=== PATIENT | male | born 1990 | race American Indian/Alaskan Native ===

== ENCOUNTER 2019-12-07 12:51 | Emergency (ER) | payer SELFPAY ==
[2019-12-07 12:59] VITALS: BP 130/45
--- NOTE | 2019-12-07 13:21 | Emergency Department Report ---
ED Eye Problem HPI - General Chief complaint: Eye Problems Stated complaint: EYE PAIN Time Seen by Provider: 12/07/19 13:10 Source: patient Mode of arrival: Ambulatory Limitations: No Limitations - History of Present Illness Initial comments: Patient is a 29-year-old male who presents emergency room with complaints of right eye erythema and irritation that began 3 days ago. He states he has had associated crusting, eyelash matting, mucus drainage, watering. He denies getting anything into the eye. He denies any contact lens use. He denies any vision changes. He states that last month he had the same symptoms but it resolved with crlb-lnl-saaicrb eyedrops. He states he has been using moww-ugt-kkxwfjx eyedrops without much relief. He states he has a past medical history of a heart murmur. He denies any allergies to medications. - Related Data Previous Rx's Medication Instructions Recorded Last Taken Type Polymyxin B Sulf/Trimethoprim 1 drop OD Q3HR 7 Days #1 bottle 12/07/19 Unknown Rx [Polytrim Eye Drops [id number]/0.1%] Allergies Allergy/AdvReac Type Severity Reaction Status Date / Time No Known Allergies Allergy Verified 12/07/19 12:54 ED Review of Systems ROS: Stated complaint: EYE PAIN Other details as noted in HPI Comment: All other systems reviewed and negative ED Past Medical Hx - Past Medical History Previous Medical History?: No - Surgical History Past Surgical History?: No - Social History Smoking Status: Never Smoker Substance Use Type: Marijuana - Medications Home Medications: Home Medications Medication Instructions Recorded Confirmed Last Taken Type Polymyxin B Sulf/Trimethoprim 1 drop OD Q3HR 7 Days #1 bottle 12/07/19 Unknown Rx [Polytrim Eye Drops [id number]/0.1%] ED Physical Exam - General Limitations: No Limitations General appearance: alert, in no apparent distress - Head Head exam: Present: atraumatic, normocephalic - Eye Eye exam: Present: PERRL, EOMI, conjunctival injection (right), other (no eyelid swelling, no eyelid scaling, no pain with EOM, no edema of the periorbital region). Absent: periorbital swelling, periorbital tenderness - ENT ENT exam: Present: mucous membranes moist - Neurological Exam Neurological exam: Present: alert, oriented X3 - Psychiatric Psychiatric exam: Present: normal affect, normal mood - Skin Skin exam: Present: warm, dry ED Course Vital Signs 12/07/19 12:57 Temperature 98 F Pulse Rate 81 Respiratory 16 Rate Blood Pressure 130/45 [Left] O2 Sat by Pulse 100 Oximetry ED Medical Decision Making - Medical Decision Making Patient is a 29-year-old male who presents emergency room with complaints of right eye erythema and irritation that began 3 days ago. He states he has had associated crusting, eyelash matting, mucus drainage, watering. He denies getting anything into the eye. He denies any contact lens use. He denies any vision changes. He states that last month he had the same symptoms but it reso lved with mwju-ebo-zkcphxp eyedrops. He states he has been using mvvs-wcy-eosclqh eyedrops without much relief. He states he has a past medical history of a heart murmur. He denies any allergies to medications. Vitals are stable. On exam: Right-sided conjunctival injection, EOMI, PERRL, no periorbital edema or tenderness to palpation, no eyelid swelling, no eyelid scaling, no pain with EOM, no edema of the periorbital region. Examination consistent with conjunctivitis. Patient given antibiotic eyedrops. Patient referred to mobile homes repairer and primary care doctor. Advised patient Please use medication as prescribed. Wash your hands frequently. Change your bed sheets. Avoid rubbing the eye. Follow-up with a mobile homes repairer. Follow-up with a primary care doctor. Return to the emergency room for any new or worsening symptoms. - Differential Diagnosis Conjunctivitis, iritis, hordeolum, chalazion, blepharitis, dacryocystitis Critical care attestation.: If time is entered above; I have spent that time in minutes in the direct care of this critically ill patient, excluding procedure time. ED Disposition Clinical Impression: Conjunctivitis Qualifiers: Conjunctivitis type: acute Acute conjunctivitis type: unspecified Laterality: right Qualified Code(s): H10.31 - Unspecified acute conjunctivitis, right eye Disposition: DC-01 TO HOME OR SELFCARE Is pt being admited?: No Does the pt Need Aspirin: No Condition: Stable Instructions: Conjunctivitis (ED) Additional Instructions: Please use medication as prescribed. Wash your hands frequently. Change your bed sheets. Avoid rubbing the eye. Follow-up with a mobile homes repairer. Follow- up with a primary care doctor. Return to the emergency room for any new or worsening symptoms. Prescriptions: Polymyxin B Sulf/Trimethoprim [Polytrim Eye Drops [id number]/0.1%] 1 drop OD Q3HR 7 Days #1 bottle Referrals: [facility] [Provider Group] - 3-5 Days DASHAWN LUCIA MD [Staff Physician] - 3-5 Days [facility] [Provider Group] - 3-5 Days [facility] [Outside] - 3-5 Days [facility] [Outside] - 3-5 Days Time of Disposition: 13:18 Print Language: CHILEAN
== END 2019-12-07 13:28 | disposition home or self-care (01) ==
LOC: ED 12:51
DX: H10.9 Unspecified conjunctivitis (principal); F12.10 Cannabis abuse, uncomplicated; Z79.899 Other long term (current) drug therapy
CPT/HCPCS: 99282

== ENCOUNTER 2020-03-31 22:17 | Emergency (ER) | payer BC ==
[2020-03-31 22:38] VITALS: BP 106/65
[2020-04-01] MEDS ORDERED: PENICILLIN G BENZATHINE 1.2 MILLION UNIT/2 ML INJ IM STA (01:28)
--- NOTE | 2020-04-01 01:40 | Emergency Department Report ---
ED Male HPI - General Chief complaint: Urogenital-Male Stated complaint: POSS STD Time Seen by Provider: 03/31/20 22:55 Source: patient Mode of arrival: Ambulatory Limitations: No Limitations - History of Present Illness Initial comments: 30-year-old -[place] male that emerge department complaining of possible syphilis contact. States he had syphilis in the past and would require treatment and was having sex about 1 to 2 months ago and the condom broke and shortly after noticed a small rash which later got worse reminded him of his previous diffuse outbreak. Reports no penile discharge or dysuria no flank pain no hematuria. - Related Data Previous Rx's Medication Instructions Recorded Last Taken Type Polymyxin B Sulf/Trimethoprim 1 drop OD Q3HR 7 Days #1 bottle 12/07/19 Unknown Rx [Polytrim Eye Drops [id number]/0.1%] Allergies Allergy/AdvReac Type Severity Reaction Status Date / Time No Known Allergies Allergy Verified 12/07/19 12:54 ED Review of Systems ROS: Stated complaint: POSS STD Other details as noted in HPI Comment: All other systems reviewed and negative ED Past Medical Hx - Past Medical History Previous Medical History?: No - Surgical History Past Surgical History?: No - Social History Smoking Status: Current Every Day Smoker Substance Use Type: Marijuana - Medications Home Medications: Home Medications Medication Instructions Recorded Confirmed Last Taken Type Polymyxin B Sulf/Trimethoprim 1 drop OD Q3HR 7 Days #1 bottle 12/07/19 Unknown Rx [Polytrim Eye Drops [id number]/0.1%] ED Physical Exam - General Limitations: No Limitations General appearance: alert, in no apparent distress - Head Head exam: Present: atraumatic, normocephalic - Eye Eye exam: Present: normal appearance, PERRL, EOMI. Absent: scleral icterus Pupils: Present: normal accommodation - ENT ENT exam: Present: normal exam, mucous membranes moist. Absent: TM's normal bilaterally - Neck Neck exam: Present: normal inspection, full ROM - Respiratory Respiratory exam: Present: normal lung sounds bilaterally. Absent: respiratory distress, wheezes, rales - Cardiovascular Cardiovascular Exam: Present: regular rate, normal rhythm. Absent: systolic murmur, diastolic murmur, rubs, gallop - GI/Abdominal GI/Abdominal exam: Present: soft, normal bowel sounds - Rectal Rectal exam: Present: deferred - exam: Present: other (Right inguinal lymphadenopathy noted. No rash noted.) - Extremities Exam Extremities exam: Present: normal inspection, full ROM - Back Exam Back exam: Present: normal inspection - Neurological Exam Neurological exam: Present: alert, oriented X3, CN II-XII intact, normal gait - Psychiatric Psychiatric exam: Present: normal affect, normal mood - Skin Skin exam: Present: warm, dry, intact, normal color. Absent: rash, cyanosis, diaphoretic, urticaria, vesicles, petechiae, pallor, abrasion, ecchymosis ED Course Vital Signs 03/31/20 03/31/20 22:26 23:01 Temperature 98.9 F 98.9 F Pulse Rate 79 79 Respiratory 12 12 Rate Blood Pressure 106/65 Blood Pressure 106/65 [Left] O2 Sat by Pulse 99 99 Oximetry Critical care attestation.: If time is entered above; I have spent that time in minutes in the direct care of this critically ill patient, excluding procedure time. ED Disposition Clinical Impression: Possible exposure to STD Disposition: DC-01 TO HOME OR SELFCARE Is pt being admited?: No Does the pt Need Aspirin: No Condition: Stable Instructions: Sexually Transmitted Diseases (ED), Safe Sex (ED), Syphilis (ED) Referrals: [facility] [Outside] - 3-5 Days
== END 2020-04-01 01:55 | disposition home or self-care (01) ==
LOC: ED 22:17
DX: Z20.2 Contact with and (suspected) exposure to infections with a predominantly sexual mode of transmission (principal); F17.200 Nicotine dependence, unspecified, uncomplicated; F12.90 Cannabis use, unspecified, uncomplicated; Z79.899 Other long term (current) drug therapy
CPT/HCPCS: 36415; 86592; 86593; 96372; 99283; J0561